=== PATIENT | female | born 1930 ===

== ENCOUNTER → 2018-05-31 | Outpatient (CLI) | payer MEDICARE, BC ==
[~2018-05-31] MED LIST: ASCO-182 PO; CHOL10005 PO; MULT1TAB64 PO; NAPR-1043 PO; OMEG-11 PO; SENN-192 PO; VITA100T4 PO
[2018-05-31 12:54] LABS: PLATELET COUNT, AUTOMATED 249 K/uL (150-450)
== END ==
LOC: LAB 12:15
PROVIDERS: ATTEND Family Medicine
DX: Z86.39 Personal history of other endocrine, nutritional and metabolic disease (principal); H35.30 Unspecified macular degeneration
CPT/HCPCS: 36415; 82040; 82247; 82310; 82374; 82435; 82565; 82947; 84075; 84132; 84155; 84295; 84443; 84450; 84460; 84520; 85025